=== PATIENT | male | born 2000 | race Caucasian/White ===

== ENCOUNTER 2020-05-30 14:31 | Outpatient (CLI) | payer BC, SELFPAY ==
--- NOTE | 2020-05-30 14:41 | XR_ITS ---
WS: [id number] CERVICAL SPINE TECHNIQUE: 3 views of the cervical spine CLINICAL INFORMATION: CERVICALGIA COMPARISON: None. FINDINGS: Normal cervical alignment. Normal C1-C2 articulation. Disc space heights and vertebral body heights w ell-preserved. Normal prevertebral soft tissues. Normal dens. Normal neural foramen. XR/XR cervical spine 4-5V [id number] IMPRESSION: Normal cervical spine
--- NOTE | 2020-05-30 14:41 | XR_ITS ---
WS: [id number] THORACIC SPINE TECHNIQUE: 3 views of the thoracic spine CLINICAL INFORMATION: PAIN IN THORACIC SPINE COMPARISON: None. FINDINGS: Minimal thoracic curve. Mild thoracic kyphosis. Mild anterior wedging in the mid thoracic spine like ly chronic. No acute appearing endplate fractures. Disc space heights and vertebral body heights are otherwise well preserved. XR/XR thoracic spine 2V [id number] IMPRESSION: 1. Minimal thoracic curve is mild thoracic kyphosis. 2. Mild anterior wedging in the upper thoracic spine nonspecific but likely ch ronic. 3. No other significant findings.
== END 2020-05-30 14:32 | disposition home or self-care (01) ==
LOC: RADWPI 14:37
PROVIDERS: PCP Nurse Practitioner Family; Visit Provider Nurse Practitioner Family
DX: M54.2 Cervicalgia (principal); S22.000A Wedge compression fracture of unspecified thoracic vertebra, initial encounter for closed fracture; X58.XXXA Exposure to other specified factors, initial encounter
CPT/HCPCS: 72050; 72070

== ENCOUNTER 2020-07-07 15:34 | Outpatient (CLI) | payer BC, SELFPAY ==
--- NOTE | 2020-07-07 15:52 | MR_ITS ---
WS: [id number] MRI CERVICAL SPINE NONCONTRAST TECHNIQUE: Sagittal T1, T2 and STIR imaging. Axial T2, gradient, and fiesta imaging. CLINICAL INFORMATION: CERVICALGIA COMPARISON: None. FINDINGS: Straightening of the normal cervical lordosis. Cord signal is normal. No high-grade central canal dominic nosis. C2-C3: Normal. C3-C4: Normal. C4-C5: No significant disc bulging. Spinal canal and foramen are patent. C5-C6: No significant disc bulging. Mild facet arthropathy. Spinal canal and foramen are patent. C6-C7: Minimal disc bulging. Spinal canal and foramen are patent. C7-T1: Normal. Partially visualized mucosal thickening in the maxillary sinuses with right maxillary retention cyst measuring 2.0 cm MR/MR cervical spin wo con* [id number] IMPRESSION: 1. Straightening of the normal cervical lordosis. Cord signal is normal. 2. No significant central canal stenosis. 3. Minimal disc bulging at C6-C7. Spinal canal and foramen are patent. 4. Partially visualized mucosal thickening in the maxillary sinuses with right maxillary retention cyst measuring 2.0 cm
--- NOTE | 2020-07-07 15:52 | MR_ITS ---
WS: [id number] MRI THORACIC SPINE WITHOUT CONTRAST TECHNIQUE: Sagittal T1, T2 and STIR imaging. Axial T2 imaging. Noncontrast imaging obtained. CLINICAL INFORMATION: PAIN IN THORACIC SPINE COMPARISON: None. FINDINGS: Normal thoracic alignment. No high-grade central canal stenosis. Cord signal is normal. Disc space he ights and vertebral body heights are well preserved. Tiny shallow central protrusion T6-T7 with sligh t contact of the thoracic cord. Spinal canal and foramen are patent. Tiny shallow central protrusion T8-9 with slight effacement of ventral thecal sac. Spinal canal and f oramen are patent. Mild facet arthropathy lower thoracic spine. Mild right T10-11 foraminal narrowing. MR/MR thoracic spin wo con* [id number] IMPRESSION: 1. Normal thoracic alignment. No acute compression. No high-grade central jose l stenosis. 2. Small central disc protrusions at T6-T7 and T8-T9. Slight contact of the th oracic cord at T6-T7. No significant central canal stenosis. 3. Mild facet arthropathy lower thoracic spine with mild right T10-T11 bony fo raminal narrowing.
== END 2020-07-07 15:35 | disposition home or self-care (01) ==
LOC: RADSHAW 15:34
PROVIDERS: PCP Nurse Practitioner Family; Visit Provider Nurse Practitioner Family
DX: M47.814 Spondylosis without myelopathy or radiculopathy, thoracic region (principal); M51.24 Other intervertebral disc displacement, thoracic region; M50.223 Other cervical disc displacement at C6-C7 level
CPT/HCPCS: 72141; 72146

== ENCOUNTER → 2020-08-04 13:32 | Outpatient (BNVA) | payer BC, SELFPAY | PROVIDERS: PCP Nurse Practitioner Family; Referring Provider Nurse Practitioner Family; Visit Provider Anesthesiology Pain Medicine | DX: G89.29 Other chronic pain (principal); M54.2 Cervicalgia | CPT/HCPCS: 99205 ==

== ENCOUNTER → 2020-10-25 10:29 | Outpatient (BNVA) | payer BC, SELFPAY | PROVIDERS: PCP Nurse Practitioner Family; Visit Provider Anesthesiology Pain Medicine | DX: G89.29 Other chronic pain (principal); M54.2 Cervicalgia; M54.9 Dorsalgia, unspecified | CPT/HCPCS: 99214 ==

== ENCOUNTER → 2020-11-04 12:40 | Outpatient (BNVA) | payer BC, SELFPAY | PROVIDERS: PCP Nurse Practitioner Family; Visit Provider Anesthesiology Pain Medicine | DX: G89.29 Other chronic pain (principal); M54.2 Cervicalgia | CPT/HCPCS: 62321; J1100 ==

== ENCOUNTER → 2020-11-18 09:26 | Outpatient (BNVA) | payer BC, SELFPAY | PROVIDERS: PCP Nurse Practitioner Family; Visit Provider Anesthesiology Pain Medicine | DX: G89.29 Other chronic pain (principal); M54.9 Dorsalgia, unspecified; M54.2 Cervicalgia | CPT/HCPCS: 99213 ==

== ENCOUNTER 2021-01-26 15:42 | Outpatient (CLI) | payer BC, SELFPAY ==
[2021-01-26 16:05] LABS: Basophils % 0.7 %; Eosinophils # 0.1 10^3/uL (0.0-0.8); Eosinophils % 2.8 %; Hematocrit 48.1 % (42.0-52.0); Hemoglobin 16.5 g/dL (11.7-16.6); Lymphocytes # 1.2 10^3/uL (0.8-4.8); Lymphocytes % 25.8 %; Mean Corpuscular HGB Conc 34.3 g/dL (30.0-36.0); Mean Corpuscular Hemoglobin 29.5 pg (28.0-34.0); Monocytes # 0.4 10^3/uL (0.2-0.9); Monocytes % 8.5 %; Neutrophils # 2.83 10^3/uL (1.8-7.7); Neutrophils % 61.8 %; Nucleated Red Blood Cells % 0 %; Platelet Count 190 10^3/cmm (130-400); Red Blood Count 5.59 10^6/uL (4.1-5.3); Red Cell Distribution Width 11.8 % (12.1-15.1); White Blood Count 4.6 10^3/uL (4.0-10.0)
[2021-01-26 18:50] LABS: Erythrocyte Sedimentation Rate 3 mm/hr (0-10)
== END 2021-01-26 15:43 | disposition home or self-care (01) ==
LOC: LAB 15:50
PROVIDERS: PCP Nurse Practitioner Family
DX: Z01.818 Encounter for other preprocedural examination (principal)
CPT/HCPCS: 36415; 85025; 85651

== ENCOUNTER 2021-02-27 06:00 | Outpatient (RCR) | payer BC, SELFPAY | END 2021-03-09 23:59 | disposition home or self-care (01) | LOC: SPT 06:00 | PROVIDERS: PCP Nurse Practitioner Family; Referring Provider Anesthesiology; Visit Provider Anesthesiology | DX: M25.511 Pain in right shoulder (principal); M47.812 Spondylosis without myelopathy or radiculopathy, cervical region | CPT/HCPCS: 97110; 97162 ==

== ENCOUNTER 2021-03-10 06:00 | Outpatient (RCR) | payer BC, SELFPAY | END 2021-04-09 23:59 | disposition home or self-care (01) | LOC: SPT 06:00 | PROVIDERS: PCP Nurse Practitioner Family; Referring Provider Anesthesiology; Visit Provider Anesthesiology | DX: M47.812 Spondylosis without myelopathy or radiculopathy, cervical region (principal); M25.511 Pain in right shoulder | CPT/HCPCS: 97110 ==

== ENCOUNTER 2023-05-19 07:06 | Emergency (ER) | payer BC, SELFPAY ==
[2023-05-19 07:10] VITALS: BP 151/91; PULSE 73; RESP 16; TEMP 37.1; O2SAT 100
--- NOTE | 2023-05-19 07:18 | ED_ITS ---
HPI - Nausea/Vomiting/Diarrhea 2 General: Chief complaint: Nausea/Vomiting/Diarrhea Stated complaint: NVD,fainted Time Seen by Provider: 05/19/23 07:08 Source: patient Mode of arrival: ambulatory History of Present Illness: 22-year-old male presents emergency room planing nausea vomiting and diarrhea has been ongoing for the last 2 days. He is felt lightheaded and weak. He denies any abdominal pain no dysuria urgency or frequency no hematuria. No previous abdominal surgeries. Denies any hematemesis coffee-ground emesis. He has not taken any medications at home to relieve symptoms. MD elicited complaint: nausea and vomiting Onset (ago): day(s) (2) Associated nausea: Yes Associated abdominal pain: No Exacerbating factors: eating Relieving factors: none Associated symtoms: Reports fatigue, anorexia, nausea and weakness; Denies altered mental status, anxiety, bloating, change in vision, chest pain, cough, diaphoresis, decreased urine output, dizziness, dysuria, epistaxis, fecal incontinence, fevers/chills, headache(s), malaise, myalgias, numbness, palpitations, rash, short of breath, syncope, tenesmus or tinnitus Review of Systems 2 Const: Reports: fatigue; Denies: fever(s), chills, malaise or diaphoresis Eyes: Denies: change in vision ENMT: Denies: tinnitus or epistaxis Card: Denies: chest pain, palpitations or syncope Resp: Denies: dyspnea GI: Reports: nausea and vomiting; Denies: abdominal pain, bloating or fecal incontinence : Reports: flank pain; Denies: dysuria, urinary frequency or urinary urgency Musc: Denies: neck pain or back pain Skin/Breast: Denies: rash Neuro: Denies: headache(s) or dizziness Psych: Denies: anxiety PFSH ED 2 PFSH: Family History Mother Hypertension Father Lung disease ASTHMA Denies family history of Diabetes Social History Smoking and tobacco/nicotine status: never used tobacco/nicotine Alcohol intake: never Substance/Drug Use: never Caregiver/support person: Yes Lives independently: Yes Household members: family Physical Exam 2 Const: COMMON NORMALS: no acute distress EXAM LIMITATIONS: no altered mental status GENERAL APPEARANCE: cooperative and comfortable O RIENTATION/CONSCIOUSNESS: Yes awake, Yes oriented to person, Yes oriented to place and Yes oriented to time HENMT: COMMON NORMALS: normocephalic, atraumatic and hearing grossly normal bilaterally HEAD & SCALP: normocephalic and atraumatic Resp: COMMON NORMALS: normal respiratory effort, No retractions, No use of accessory muscles and clear to auscultation bilaterally AUSCULTATION: clear to auscultation bilaterally Cardio: COMMON NORMALS: regular rate, regular rhythm and No murmurs present (Cardio) RATE: regular rate RHYTHM: regular rhythm GI: COMMON NORMALS: Soft to palpation and No hepatosplenomegaly present A USCULTATION: Yes normoactive bowel sounds PALPATION: Yes Soft to palpation, No Tenderness to palpation present (GI), No Guarding due to palpation present (GI) and Yes No hepatosplenomegaly present Extremity: COMMON NORMALS: normal to inspection, capillary refill normal, no clubbing, cyanosis or edema, no calf tenderness and no pedal edema Neuro: SENSORIUM/ORIENTATION: Yes oriented to person, Yes oriented to place and Yes oriented to time Skin: COMMON NORMALS: no rashes or lesions noted GENERAL SKIN EXAM: no rashes or lesions noted Course 2 Vital Signs: Vital signs: Vital Signs Temperature 98.7 F 05/19/23 07:10 Pulse Rate 67 05/19/23 08:35 Respiratory Rate 16 05/19/23 07:10 Blood Pressure 126/78 05/19/23 08:35 Pulse Oximetry 100 05/19/23 08:35 Oxygen Delivery Me thod Room Air 05/19/23 08:35 MDM - Nausea/Vomiting/Diarrhea Medical Decision Making Labs and imaging reviewed. In the setting of a benign abdominal exam and unremarkable labs did not advise any advanced imaging. Glucotide 24 to 48 hours and advance given diet instructions for clear liquids and gastroenteritis. Additionally gave ondansetron to use as needed return if is further problems. Medical Records I reviewed the patient's medical records. Lab Data I reviewed the patient's lab results. 05/19/23 07:28 05/19/23 07:28 Laboratory Results WBC 5.06 10^3/uL (3.29-11.43) 05/19/23 07:28 RBC 5.41 10^6/uL (3.85-5.65) 05/19/23 07:28 Hgb 16.10 g/dL (11.27-16.99) 05/19/23 07: Hct 45.1 % (37-53) 05/19/23 07: MCV 83.4 fl (82-101) 05/19/23 07: MCH 29.8 pg (27-33) 05/19/23 07: MCHC 35.7 g/dL (30-55) 05/19/23 07: RDW 11.7 % (12.1-15.1) L 05/19/23 07:28 Plt Count 148 10^3/cmm (157-399) L 05/19/23 07: MPV 9.3 fL (7.4-10.4) 05/19/23 07:28 Neut % (Auto) 71.5 % 05/19/23 07: Lymph % (Auto) 17.2 % 05/19/23 07:28 [place] % (Auto) 8.7 % 05/19/23 07:28 Eos % (Auto) 2.0 % 05/19/23 07:28 Baso % (Auto) 0.4 % 05/19/23 07:28 Neut # (Auto) 3.62 10^3/uL (1.8-7.7) 05/19/23 07:28 Lymph # (Auto) 0.9 10^3/uL (0.8-4.8) 05/19/23 07:28 [place] # (Auto) 0.4 10^3/uL (0.2-0.9) 05/19/23 07:28 Eos # (Auto) 0.1 10^3/uL (0.0-0.8) 05/19/23 07:28 Baso # (Auto) 0.0 10^3/uL (0.0-0.1) 05/19/23 07:28 Nucleated RBC % (auto) 0 % 05/19/23 07:28 Nucleated RBCs # 0.0 /100WBC 05/19/23 07:28 Sodium 137 mmol/L (136-145) 05/19/23 07:28 Potassium 3.6 mmol/L (3.5-5.1) 05/19/23 07:28 Chloride 103 mmol/L (98-107) 05/19/23 07:28 Carbon Dioxide 25 mmol/L (22-29) 05/19/23 07:28 Anion Gap 12.6 (5-19) 05/19/23 07:28 BUN 17 mg/dL (6-20) 05/19/23 07:28 Creatinine 0.8 mg/dL (0.7-1.2) 05/19/23 07:28 GFR Calculation 118.8 mL/min (90-130) 05/19/23 07:28 Glucose 137 mg/dL (65-115) H 05/19/23 07:28 Calculated Osmolality 288 mOsm/kg (285-295) 05/19/23 07:28 Calcium 9.4 mg/dL (8.5-10.5) 05/19/23 07:28 Total Bilirubin 1.1 mg/dL (0.15-1.2) 05/19/23 07:28 AST 27 U/L (0-40) 05/19/23 07:28 ALT 25 U/L (0-41) 05/19/23 07:28 Alkaline Phosphatase 78 U/L (40-130) 05/19/23 07:28 Total Protein 7.0 g/dL (6.6-8.7) 05/19/23 07:28 Albumin 4.7 g/dL (3.5-5.2) 05/19/23 07:28 Globulin 2.3 g/dL (1.3-4.6) 05/19/23 07:28 Lipase 40 U/L (13-60) 05/19/23 07:28 Urine Color Yellow (Yellow) 05/19/23 08:25 Urine Appearance Clear (CLEAR) 05/19/23 08:25 Urine pH 5 (5-7) 05/19/23 08:25 Ur Specific [place] 1.020 (1.005-1.030) 05/19/23 08:25 Urine Protein Neg (Negative) 05/19/23 08:25 Urine Glucose (UA) Norm (Normal) 05/19/23 08:25 Urine Ketones Negative (Negative) 05/19/23 08:25 Urine Blood Neg (Negative) 05/19/23 08:25 Urine Nitrate Negative (Negative) 05/19/23 08:25 Urine Bilirubin Neg (Negative) 05/19/23 08:25 Urine Urobilinogen Norm mg/dL (Negative) 05/19/23 08:25 Ur Leukocyte Esterase Negative (Negative) 05/19/23 08:25 No radiology studies performed this visit Discharge Plan Discharge Patient Disposition: Home Clinical Impression: Gastroenteritis Condition: Stable Prescriptions: New ondansetron 4 mg tablet,disintegrating 4 mg PO Q6H PRN (Reason: nausea and vomiting) Qty: 20 0RF No Action cyclobenzaprine 5 mg tablet 5 mg PO TID PRN ibuprofen 200 mg tablet 200 - 400 mg PO . NEEDED Discharge Orders: Discharge ED (Routine); Ordered 05/19/23 Ordered By: Francisco J Her Referrals: Rao,SARAI Nicole [Primary Care Provider] - Discharge Diet: As Directed Discharge Activity: Resume usual activity Patient Instructions: Clear Liquid Diet (ED), Diet for Stomach Ulcers and Gastritis (ED), Gastroenteritis (ED), Opioid Safety, Pain Management Activity Restrictions/Additional Instructions: Thank you for choosing [facility] for your healthcare needs today. Please realize this is an emergency room and that we are providing you with a medical screening exam and this may not be complete and all inclusive of all the testing and or work up that you may need to determine your ailment or severity of your illness. It is very important that you follow up as instructed or that you return to the Emergency Department should you have concerns or if your condition changes or worsens in any way. Coding Level of Care Code ED Suit Attendant for Demetrius Harris
[2023-05-19] MEDS: ondansetron 2 mg/ML SDV 2 mL 4 MG IVP (07:33)
[2023-05-19] MEDS: sodium chloride 0.9% 1,000 ML 999 ML IV ×2 (07:33→08:25)
[2023-05-19 07:34] LABS: Basophils % 0.4 %; Eosinophils # 0.1 10^3/uL (0.0-0.8); Hematocrit 45.1 % (37-53); Lymphocytes # 0.9 10^3/uL (0.8-4.8); Lymphocytes % 17.2 %; Mean Corpuscular HGB Conc 35.7 g/dL (30-55); Mean Corpuscular Hemoglobin 29.8 pg (27-33); Mean Corpuscular Volume 83.4 fl (82-101); Mean Platelet Volume 9.3 fL (7.4-10.4); Monocytes # 0.4 10^3/uL (0.2-0.9); Monocytes % 8.7 %; Neutrophils # 3.62 10^3/uL (1.8-7.7); Neutrophils % 71.5 %; Nucleated Red Blood Cells % 0 %; Platelet Count 148 10^3/cmm (157-399); Red Blood Count 5.41 10^6/uL (3.85-5.65); Red Cell Distribution Width 11.7 % (12.1-15.1); White Blood Count 5.06 10^3/uL (3.29-11.43)
[2023-05-19 07:38] VITALS: BP 138/83; PULSE 69; O2SAT 100
[2023-05-19 07:56] LABS: Alanine Aminotransferase 25 U/L (0-41); Albumin Level 4.7 g/dL (3.5-5.2); Alkaline Phosphatase 78 U/L (40-130); Anion Gap 12.6 (5-19); Aspartate Amino Transferase 27 U/L (0-40); Blood Urea Nitrogen 17 mg/dL (6-20); Calcium 9.4 mg/dL (8.5-10.5); Carbon Dioxide 25 mmol/L (22-29); Chloride 103 mmol/L (98-107); Globulin 2.3 g/dL (1.3-4.6); Glomerular Filtration Rate 118.8 mL/min (90-130); Glucose 137 mg/dL (65-115); Lipase 40 U/L (13-60); Osmolality Calculated 288 mOsm/kg (285-295); Potassium 3.6 mmol/L (3.5-5.1); Sodium 137 mmol/L (136-145); Total Bilirubin 1.1 mg/dL (0.15-1.2)
[2023-05-19 08:35] VITALS: BP 126/78; PULSE 67; O2SAT 100
[2023-05-19 08:39] LABS: Add Urine Microscopic? NO; Charge for UA Resulting for Rev
[2023-05-19 08:52] LABS: Bilirubin Urine Neg (Negative); Blood Urine Neg (Negative); Glucose Urine UA Norm (Normal); Ketones Urine Negative (Negative); Leukocyte Esterase Urine Negative (Negative); Nitrate Urine Negative (Negative); Protein Urine Neg (Negative); Urine Appearance Clear (CLEAR); Urine Color Yellow (Yellow); Urobilinogen Urine Norm (Negative); pH Urine 5 (5-7)
[2023-05-19 09:53] VITALS: BP 124/68; PULSE 70; O2SAT 100
== END 2023-05-19 09:55 | disposition home or self-care (01) ==
PROVIDERS: Emergency Provider Family Medicine; PCP Nurse Practitioner Family
DX: K52.9 Noninfective gastroenteritis and colitis, unspecified (principal)
CPT/HCPCS: 80053; 81003; 83690; 85025; 96361; 96374; 99284; J2405; J7030